=== PATIENT | female | born 1980 | race Caucasian/White ===

== ENCOUNTER → 2017-06-28 | Outpatient (CLI) | payer OTHER ==
[~2017-06-28] MED LIST: ACET325 PO; BIRTH CONTROL; BUSP10 PO; Buspirone HCl7.5 MG; ESCI20 PO; ESTR.1TPB TOP; ESTR2 PO; FLUC150A PO; FLUO10; HYDACE5 PO; IBUP800; Imitrex100 MG PO; KETO10 PO; LORA1 PO; PRED20 PO; PROM25 PO; Percocet 5-3251 EACH PO; QUET100 PO; SUMA25 PO; Seroquel50 MG; Seroquel50 MG PO; TERC.8TC PV; TOPI100 PO; TOPI25 PO; TRAM50; TRAM50 PO; VENL150ER PO; VENL75ER PO; Zofran Odt8 MG SL
[2017-06-28 14:28] LABS: BASOPHILS ABSOLUTE AUTO 0.04 K/mm3 (0.00-0.23); BASOPHILS PERCENT AUTO 1 % (0-2); EOSINOPHILS ABSOLUTE AUTO 0.05 K/mm3 (0.00-0.68); EOSINOPHILS PERCENT AUTO 1 % (0-6); Hematocrit 38.7 % (33.0-51.0); Hemoglobin 13.6 g/dL (11.5-16.0); IMMATURE GRAN ABSOLUTE AUTO 0.01 K/mm3 (0.00-0.10); IMMATURE GRAN PERCENT AUTO 0 % (0-1); LYMPHOCYTES ABSOLUTE AUTO 1.96 K/mm3 (0.84-5.20); LYMPHOCYTES PERCENT AUTO 39 % (21-46); MONOCYTES PERCENT AUTO 8 % (4-13); Mean Corpuscular HGB 32.2 pg (26.0-34.0); Mean Corpuscular HGB Conc 35.1 g/dL (31.5-36.5); Mean Corpuscular Volume 92 fL (80-100); Mean Platelet Volume 11.5 fL (9.1-12.4); NEUTROPHILS ABSOLUTE AUTO 2.59 K/mm3 (1.96-9.15); NEUTROPHILS PERCENT AUTO 51 % (41-73); Platelet Count 271 K/mm3 (150-400); RDW Standard Deviation 40.4 fL (35.1-46.3); Red Blood Cell Count 4.22 M/mm3 (3.80-5.20); White Blood Cell Count 5.05 K/mm3 (4.00-11.30)
[2017-06-28 14:49] LABS: Alanine Aminotransfer (ALT/SGP 20 U/L (12-78); Albumin, Blood 4.4 g/dL (3.4-5.0); Albumin/Globulin Ratio 1.2 (0.8-1.8); Alk Phos 91 U/L (50-136); Anion Gap 10 mmol/L (6-16); Aspartate Aminotrans (AST/SGOT 17 U/L (12-37); Bilirubin, Total 0.6 mg/dL (0.1-1.0); Blood Urea Nitrogen 9 mg/dL (8-24); Bun/Creatinine Ratio 10.8 (12.0-20.0); CO2, Blood 22 mmol/L (21-32); Calcium, Blood 9.5 mg/dL (8.5-10.1); Chloride, Blood 111 mmol/L (98-108); Creatinine, Blood 0.84 mg/dL (0.40-1.00); Globulin, Blood 3.6 g/dL (2.2-4.0); Glomerular Filtration Rate >60 (60-); Glucose, Blood 92 mg/dL (70-99); Potassium, Blood 3.2 mmol/L (3.5-5.5); Sodium, Blood 143 mmol/L (136-145)
== END ==
LOC: LAB SHORT 13:45 → LAB 13:45
PROVIDERS: Nurse Practitioner
DX: R42 Dizziness and giddiness (principal); R06.02 Shortness of breath
CPT/HCPCS: 80053; 85025; 85379

== ENCOUNTER → 2017-07-26 | Outpatient (CLI) | payer OTHER ==
[2017-07-26 12:25] LABS: BASOPHILS ABSOLUTE AUTO 0.03 K/mm3 (0.00-0.23); BASOPHILS PERCENT AUTO 1 % (0-2); EOSINOPHILS ABSOLUTE AUTO 0.07 K/mm3 (0.00-0.68); EOSINOPHILS PERCENT AUTO 1 % (0-6); Hematocrit 40.9 % (33.0-51.0); Hemoglobin 13.7 g/dL (11.5-16.0); IMMATURE GRAN ABSOLUTE AUTO 0.01 K/mm3 (0.00-0.10); IMMATURE GRAN PERCENT AUTO 0 % (0-1); LYMPHOCYTES ABSOLUTE AUTO 1.74 K/mm3 (0.84-5.20); LYMPHOCYTES PERCENT AUTO 34 % (21-46); MONOCYTES ABSOLUTE AUTO 0.37 K/mm3 (0.16-1.47); MONOCYTES PERCENT AUTO 7 % (4-13); Mean Corpuscular HGB 32.4 pg (26.0-34.0); Mean Corpuscular HGB Conc 33.5 g/dL (31.5-36.5); Mean Corpuscular Volume 97 fL (80-100); NEUTROPHILS ABSOLUTE AUTO 2.94 K/mm3 (1.96-9.15); NEUTROPHILS PERCENT AUTO 57 % (41-73); Platelet Count 253 K/mm3 (150-400); RDW Coefficient Variation 12.1 % (11.7-14.2); RDW Standard Deviation 42.9 fL (35.1-46.3); Red Blood Cell Count 4.23 M/mm3 (3.80-5.20); White Blood Cell Count 5.16 K/mm3 (4.00-11.30)
[2017-07-26 12:47] LABS: Alanine Aminotransfer (ALT/SGP 16 U/L (12-78); Albumin, Blood 4.1 g/dL (3.4-5.0); Albumin/Globulin Ratio 1.2 (0.8-1.8); Alk Phos 115 U/L (50-136); Anion Gap 8 mmol/L (6-16); Aspartate Aminotrans (AST/SGOT 13 U/L (12-37); Bilirubin, Total 0.3 mg/dL (0.1-1.0); Blood Urea Nitrogen 12 mg/dL (8-24); Bun/Creatinine Ratio 14.6 (12.0-20.0); CO2, Blood 26 mmol/L (21-32); Calcium, Blood 8.8 mg/dL (8.5-10.1); Chloride, Blood 109 mmol/L (98-108); Creatinine, Blood 0.82 mg/dL (0.40-1.00); Globulin, Blood 3.3 g/dL (2.2-4.0); Glomerular Filtration Rate >60 (60-); Glucose, Blood 96 mg/dL (70-99); Potassium, Blood 3.5 mmol/L (3.5-5.5); Sodium, Blood 143 mmol/L (136-145); Total Protein, Blood 7.4 g/dL (6.4-8.2)
== END | disposition home or self-care (01) ==
LOC: LAB SHORT 12:07 → LAB 12:07
PROVIDERS: Emergency Medicine
DX: R10.84 Generalized abdominal pain (principal)
CPT/HCPCS: 80053; 85025; 87086

== ENCOUNTER → 2018-09-21 | Outpatient (CLI) | payer OTHER ==
[~2018-09-21] MED LIST changes: +ALBU90OI INH; +Adipex-P37.5 M1 PO; +Amoxicillin500 MG PO; +Flonase 0.05% N16 GM; +HYDR1TAB94 PO; +MONT10T PO; +Norco 10-325 T1 EACH PO; +Protonix40 MG PO
[2018-09-23 15:07] LABS: HPV 16 Negative (Negative); HPV 18 Negative (Negative); HPV OTHER HR TYPES Negative (Negative)
== END | disposition home or self-care (01) ==
LOC: LAB SHORT 18:57 → LAB 18:57
PROVIDERS: Nurse Practitioner Women's Health
DX: Z12.72 Encounter for screening for malignant neoplasm of vagina (principal); Z91.89 Other specified personal risk factors, not elsewhere classified
CPT/HCPCS: 87624; G0123

== ENCOUNTER 2018-12-15 14:58 | Emergency (ER) | payer OTHER ==
[~2018-12-15] VITALS: Ht 165.1 cm; Wt 67.1 kg
[~2018-12-15 14:58] MED LIST changes: -ALBU90OI INH
[2018-12-15 16:09] LABS: BASOPHILS ABSOLUTE AUTO 0.06 K/mm3 (0.00-0.23); BASOPHILS PERCENT AUTO 1 % (0-2); EOSINOPHILS ABSOLUTE AUTO 0.21 K/mm3 (0.00-0.68); EOSINOPHILS PERCENT AUTO 2 % (0-6); Hematocrit 45.5 % (33.0-51.0); Hemoglobin 14.7 g/dL (11.5-16.0); IMMATURE GRAN ABSOLUTE AUTO 0.01 K/mm3 (0.00-0.10); IMMATURE GRAN PERCENT AUTO 0 % (0-1); LYMPHOCYTES ABSOLUTE AUTO 2.08 K/mm3 (0.84-5.20); LYMPHOCYTES PERCENT AUTO 22 % (21-46); MONOCYTES ABSOLUTE AUTO 0.63 K/mm3 (0.16-1.47); MONOCYTES PERCENT AUTO 7 % (4-13); Mean Corpuscular HGB 32.3 pg (26.0-34.0); Mean Corpuscular HGB Conc 32.3 g/dL (31.5-36.5); Mean Corpuscular Volume 100 fL (80-100); Mean Platelet Volume 11.4 fL (9.1-12.4); NEUTROPHILS ABSOLUTE AUTO 6.44 K/mm3 (1.96-9.15); NEUTROPHILS PERCENT AUTO 68 % (41-73); Platelet Count 237 K/mm3 (150-400); RDW Coefficient Variation 11.6 % (11.7-14.2); RDW Standard Deviation 42.5 fL (35.1-46.3); Red Blood Cell Count 4.55 M/mm3 (3.80-5.20); White Blood Cell Count 9.43 K/mm3 (4.00-11.30)
[2018-12-15 16:36] LABS: Alanine Aminotransfer (ALT/SGP 27 U/L (12-78); Albumin, Blood 4.7 g/dL (3.4-5.0); Albumin/Globulin Ratio 1.4 (0.8-1.8); Alk Phos 110 U/L (50-136); Anion Gap 5 mmol/L (6-16); Aspartate Aminotrans (AST/SGOT 15 U/L (12-37); Bilirubin, Total 0.4 mg/dL (0.1-1.0); Blood Urea Nitrogen 8 mg/dL (8-24); Bun/Creatinine Ratio 9.9 (12.0-20.0); CO2, Blood 26 mmol/L (21-32); Calcium, Blood 9.3 mg/dL (8.5-10.1); Chloride, Blood 107 mmol/L (98-108); Creatinine, Blood 0.81 mg/dL (0.40-1.00); Globulin, Blood 3.4 g/dL (2.2-4.0); Glomerular Filtration Rate >60 (60-); Glucose, Blood 86 mg/dL (70-99); Potassium, Blood 3.7 mmol/L (3.5-5.5); Sodium, Blood 138 mmol/L (136-145); Total Protein, Blood 8.1 g/dL (6.4-8.2)
[2018-12-15 16:42] LABS: Troponin I <0.015 ng/mL (0.000-0.040)
[2018-12-15 17:17] LABS: Source, Urine Clean Catch
[2018-12-15 18:05] LABS: Appearance, Urine Clear (Clear); Bilirubin, Urine Neg (Neg); Blood, Urine 1+ (Neg); Color, Urine Yellow (P-Yellow); Glucose Qualitative, Urine Neg (Neg); Ketones, Urine Neg (Neg); Leukocyte Esterase, Urine 1+ (Neg); Nitrite, Urine Neg (Neg); Protein, Urine Neg (Neg); Specific Gravity, Urine 1.015 (1.003-1.022); Urobilinogen, Urine NORM (Normal)
[2018-12-15 18:31] LABS: Bacteria Few /hpf; Red Blood Cells, Urine 0-2 /hpf (0-2); Squamous Epithelial Cells Few /hpf (Few)
[2018-12-15] MEDS ORDERED: ALBU90OI INH (18:34)
== END 2018-12-15 18:39 | disposition home or self-care (01) ==
LOC: ER 14:58
PROVIDERS: Physician Assistant
DX: B34.9 Viral infection, unspecified (principal); Z91.012 Allergy to eggs; Z88.2 Allergy status to sulfonamides; Z88.5 Allergy status to narcotic agent; F17.200 Nicotine dependence, unspecified, uncomplicated
CPT/HCPCS: 36415; 71046; 80053; 81001; 84443; 84484; 85025; 87086; 93005; 93010; 99284-25

== ENCOUNTER 2019-02-08 21:18 | Inpatient (IN) | payer OTHER ==
[~2019-02-08] VITALS: Ht 170.2 cm; Wt 69.3 kg
[~2019-02-08 21:18] MED LIST changes: +ALBU90OI INH
[2019-02-08 21:36] LABS: BASOPHILS ABSOLUTE AUTO 0.07 K/mm3 (0.00-0.23); BASOPHILS PERCENT AUTO 1 % (0-2); EOSINOPHILS ABSOLUTE AUTO 0.11 K/mm3 (0.00-0.68); EOSINOPHILS PERCENT AUTO 1 % (0-6); Hematocrit 40.8 % (33.0-51.0); Hemoglobin 13.6 g/dL (11.5-16.0); IMMATURE GRAN ABSOLUTE AUTO 0.02 K/mm3 (0.00-0.10); IMMATURE GRAN PERCENT AUTO 0 % (0-1); LYMPHOCYTES ABSOLUTE AUTO 3.18 K/mm3 (0.84-5.20); LYMPHOCYTES PERCENT AUTO 37 % (21-46); MONOCYTES ABSOLUTE AUTO 0.59 K/mm3 (0.16-1.47); MONOCYTES PERCENT AUTO 7 % (4-13); Mean Corpuscular HGB 32.8 pg (26.0-34.0); Mean Corpuscular HGB Conc 33.3 g/dL (31.5-36.5); Mean Corpuscular Volume 98 fL (80-100); Mean Platelet Volume 10.3 fL (9.1-12.4); NEUTROPHILS ABSOLUTE AUTO 4.61 K/mm3 (1.96-9.15); NEUTROPHILS PERCENT AUTO 54 % (41-73); Platelet Count 272 K/mm3 (150-400); RDW Coefficient Variation 11.9 % (11.7-14.2); Red Blood Cell Count 4.15 M/mm3 (3.80-5.20); White Blood Cell Count 8.58 K/mm3 (4.00-11.30)
[2019-02-08 21:53] LABS: Acetaminophen, Random <2.0 ug/mL (10.0-30.0); Alanine Aminotransfer (ALT/SGP 28 U/L (12-78); Albumin, Blood 4.5 g/dL (3.4-5.0); Albumin/Globulin Ratio 1.3 (0.8-1.8); Alk Phos 84 U/L (50-136); Anion Gap 8 mmol/L (6-16); Aspartate Aminotrans (AST/SGOT 19 U/L (12-37); Bilirubin, Total 0.3 mg/dL (0.1-1.0); Blood Urea Nitrogen 10 mg/dL (8-24); Bun/Creatinine Ratio 12.9 (12.0-20.0); CO2, Blood 26 mmol/L (21-32); Chloride, Blood 109 mmol/L (98-108); Creatinine, Blood 0.78 mg/dL (0.40-1.00); Ethanol (Alcohol), Blood, Med 169 mg/dL; Globulin, Blood 3.4 g/dL (2.2-4.0); Glomerular Filtration Rate >60 (60-); Glucose, Blood 88 mg/dL (70-99); Potassium, Blood 3.7 mmol/L (3.5-5.5); Salicylate 3.7 mg/dL (2.8-20.0); Sodium, Blood 143 mmol/L (136-145); Total Protein, Blood 7.9 g/dL (6.4-8.2)
[2019-02-08 23:24] LABS: U Amphetamine Screen Not Detected; U Barbituate Screen Not Detected; U Benzodiazapine Screen DETECTED; U Buprenorphine Screen Not Detected; U Cannabinoids Screen Not Detected; U Cocaine Screen Not Detected; U Methadone Screen Not Detected; U Methamphetamine Screen Not Detected; U Opiates Screen Not Detected; U Oxycodone Screen Not Detected; U Phencyclidine Screen Not Detected; U Propoxyphene Screen Not Detected
[2019-02-08 23:47] LABS: CPK Creatine Kinase 132 U/L (26-193)
[2019-02-09] MEDS ORDERED: Citalopram HBr20 MG PO (00:17)
[2019-02-09] MEDS ORDERED: DOTTI1 EACH (00:18)
[2019-02-09] MEDS ORDERED: PROG100 PO (00:18)
[2019-02-09] MEDS ORDERED: ALPRAZOLAM0.5 M1 PO (00:19)
[2019-02-09] MEDS ORDERED: Sudogest30 MG PO (00:21)
--- NOTE | 2019-02-09 01:21 | NUR ---
ASSUMED PT CARE AT 2330 PT ALERT AND ORIENTED AND RESPONDING APPROPRIATELY TO QUESTIONS. PT VERY TEARFUL AND EMOTIONAL UPON ARRIVAL. CONTINUED TO ASK IF SHE WAS IN TROUBLE. REASSURED THAT SHE WASN'T IN TROUBLE, BUT SHE WAS BEING HELD ON A 2MD HOLD DUE TO HER ATTEMPTING TO HARM HERSELF. PT STATES SHE DID IT DUE TO HER EX- TRYING TO GET FULL CUSTODY OF HER KIDS. STATES SHE FEELS WORTHLESS AND A CONSTANT FAILURE. PT REASSURED WITH TOUCH OF HAND. ASKED IF SHE HAS REACHED OUT FOR ASSISTANCE IN THE PAST FOR SIMILAR FEELINGS. PT STATED SHE HAD NOT AND THAT SHE DOESN'T HAVE THE TIME TO SEE ANYBODY FOR HER DEPRESSION DUE TO HER WORKING [employer] AND HAVING FOUR KIDS. REASSURED PT THAT WE WOULD HELP ASSIST WITH A SAFETY PLAN TO PREVENT FUTURE RECURRENCE. PT STATES SHE DIDN'T TAKE ALL HER XANAX TONIGHT. SHE CONFIRMED IT WAS REFILLED ON THE , BUT TOOK THEM FREQUENTLY T/O THE WEEKEND. STATED THE LAST THING SHE REMEMBERED DOING WAS GETTING UP TO USE THE BATHROOM AT HOME AND HAS NO RECOLLECTION SINCE THEN. STATES SHE IS NOT CURRENTLY HAVING ANY THOUGHTS OF KILLING HERSELF. CIVIL RIGHTS WAS READ AND SIGNED. PT CONTINUES TO BE TEARFUL; AGAIN, REASSURED THAT SHE WAS NOT IN TROUBLE AND THAT HER PRIVACY WOULD STILL BE MAINTAINED. PT STATED HE EX- IS A TRANSLITERATOR AND WOULD FIND A WAY TO FIND OUT SHE WAS HERE. PT C/O 10/16 MIGRAINE PAIN; STATING SHE HAD PRESSURE BEHIND HER EYES AND TO HER NECK. ADMINISTERED TORADOL WITH NO EFFECT; ICE PACK APPLIED TO BASE OF NECK. NO RELIEF; THEREFORE, DR. ROCHA CALLED AND ORDERS OBTAINED FOR FIORICET. PT IS CURRENTLY RESTING WITH LIGHTS ON DIM; ONE ON ONE SITTER IN PLACE; CALL LIGHT LEFT WITHIN REACH. PT ABLE TO MAKE NEEDS KNOWN. SHAHEED LEFT THE NIGHT AND WAS VERY COOPERATIVE AND UNDERSTANDING OF NOT BEING ABLE TO STAY THE NIGHT D/T PT BEING HIGH SUICIDE RISK. WILL CONTINUE TO MONITOR.
--- NOTE | 2019-02-09 05:00 | NUR ---
POISON CONTROL CALLED REGARDING PATIENT'S STATUS. RECOMMENDED ANOTHER BLOOD DRAW FOR ASPIRIN LEVELS. DR ROCHA CONTACTED AND ORDER GIVEN FOR THE LAB. JOHN PAUL GREEN
--- NOTE | 2019-02-09 05:33 | NUR ---
END OF SHIFT SUMMARY NO SIGNIFICANT CHANGES SINCE LAST ENTRY. PT SLEEPING MOST OF SHIFT. C/O HEADACHE OFF AND ON; FIORICET APPEARS EFFECTIVE FOR PT. WILL CONTINUE TO MONITOR UNTIL REPORT IS HANDED OFF TO ONCOMING RN.
--- NOTE | 2019-02-09 07:25 | NUR ---
RECEIVED ORDERS FROM DR. ROCHA TO DRAW ASPIRIN LEVEL DUE TO POISON CONTROL RECOMMENDATION.
--- NOTE | 2019-02-09 07:45 | NUR ---
ASSUMED CARE RECEIVED REPORT FROM GILBERTO CANTU. PT IS LYING IN BED, ALERT, ORIENTED X 4. IS AT BEDSIDE. PT AND 'S BELONGINGS ARE OUTSIDE THE ROOM. THERE IS A SITTER WATCHING THE PATIENT. SHE IS CURRENTLY DENYING SUICIDAL IDEATION. BED IS LOW AND LOCKED. SHE HAS A PATENT BEE DRAINING URINE.
--- NOTE | 2019-02-09 08:21 | NUR ---
DR. KO IN ROOM WITH PATIENT RIGHT NOW.
--- NOTE | 2019-02-09 12:15 | NUR ---
UPDATE DISCUSSED WITH POISON CONTROL, AND UPDATED THEM ON SITUATION. THEY ARE SIGNING OFF. SHE IS TRANSFERING TO PCU, ONCE THE ROOM IS FREE AND CLEAN. WAITING TO GIVE REPORT TO PCU NURSE. SHE IS MEDICALLY STABLE, HER LOW BLOOD PRESSURES ARE DUE TO POSITIONING OF HER BP CUFF. HER MIGRAINE HAS SUBSIDED FOR THE TIME BEING. THE FIORICET SEEMS TO WORK WELL, WHILE THE TORADOL SEEMS TO HAVE NO EFFECT. HER ABDOMINAL PAIN IS RELIEVED BY REPOSITIONING TO HER LEFT SIDE. MINNIE HAS YET TO COME BY AND SEE HER. SOCRATES HAS SEEN HER.
--- NOTE | 2019-02-09 13:58 | NUR ---
Attempted to meet at 10 am this morning for Safety Plannin. patient did not want to talk at that time. Apns Rafael met with patient later in day and completed the plan. Brina Kuhn M.Ed., [facility]
--- NOTE | 2019-02-09 14:03 | NUR ---
PT LEFT ICU FOR PCU 3 AT 1400. SHE WAS ON ROOM AIR, WITH STABLE VITALS IN SINUS RHYTHM. TWO CTO'S TOOK PT TO HER ROOM. ONLY COMPLAINT WAS OF HER MIGRAINE.
--- NOTE | 2019-02-09 14:20 | NUR ---
PT TRANSFER TO UNIT. PT WAS TRANSFERRED VIA W/C TO THIS UNIT. PT'S VS STABLE, PT IS ON HIGH RISK SI FOR XANAX OD. PT WAS AGITATED ABOUT HAVING THE 1:1 SITTER AND OTHER SI PRECAUTIONS. FACILITY POLILCY WAS EXPLAINED TO THE PT AND FAMILY AT THE BEDSIDE. WILL CONTINUE TO MONITOR.
[2019-02-09] MEDS ORDERED: TRAZ50 PO (16:53)
--- NOTE | 2019-02-09 17:21 | NUR ---
PT D/C. PT WAS D/C'D HOME AFTER MEETING WITH MENTAL HEALTH PROVIDER. PT EDUCATED ON NEW MEDICATION AND D/C INSTRUCTIONS. IV WAS REMOVED WNL. PT'S BELONGINGS PACKED AND D/C'D WITH PT. PT DENIES CHEST PAIN/PRESSURE N/V OR SOB.
== END 2019-02-09 17:20 | disposition home or self-care (01) | DRG 917 ==
LOC: ER 21:18 → ICUE 22:27 → PCU 22:27 → ICUW 22:27 → ICUE 23:29 → PCU 02-09 14:00
PROVIDERS: Physician Assistant; ADMIT Family Medicine
DX: T42.4X2A Poisoning by benzodiazepines, intentional self-harm, initial encounter (principal); G92 Toxic encephalopathy; R45.851 Suicidal ideations; F33.9 Major depressive disorder, recurrent, unspecified; F17.210 Nicotine dependence, cigarettes, uncomplicated; Z88.5 Allergy status to narcotic agent; Z88.2 Allergy status to sulfonamides; Z91.012 Allergy to eggs
CPT/HCPCS: 36415; 51702; 70450; 72125; 80053; 81025; 82550; 85025; 93005; 93010; 96361-59; 96374-59; 96375-59; 99285-25; G0480; J1885; J2310; J2405; J3411; J3475; J7030; J7042

== ENCOUNTER 2019-11-15 12:22 | Emergency (ER) | payer OTHER ==
[~2019-11-15] VITALS: Ht 165.1 cm; Wt 65.8 kg
[~2019-11-15 12:22] MED LIST changes: +ALPRAZOLAM0.5 M1 PO; +Citalopram HBr20 MG PO; +DOTTI1 EACH; +PROG100 PO; +Sudogest30 MG PO; +TRAZ50 PO
[2019-11-15 13:45] LABS: BASOPHILS ABSOLUTE AUTO 0.07 K/mm3 (0.00-0.23); BASOPHILS PERCENT AUTO 1 % (0-2); EOSINOPHILS ABSOLUTE AUTO 0.13 K/mm3 (0.00-0.68); EOSINOPHILS PERCENT AUTO 2 % (0-6); Hematocrit 45.8 % (33.0-51.0); Hemoglobin 15.2 g/dL (11.5-16.0); IMMATURE GRAN ABSOLUTE AUTO 0.01 K/mm3 (0.00-0.10); IMMATURE GRAN PERCENT AUTO 0 % (0-1); LYMPHOCYTES ABSOLUTE AUTO 2.46 K/mm3 (0.84-5.20); LYMPHOCYTES PERCENT AUTO 38 % (21-46); MONOCYTES ABSOLUTE AUTO 0.36 K/mm3 (0.16-1.47); MONOCYTES PERCENT AUTO 6 % (4-13); Mean Corpuscular HGB 31.8 pg (26.0-34.0); Mean Corpuscular HGB Conc 33.2 g/dL (31.5-36.5); Mean Corpuscular Volume 96 fL (80-100); Mean Platelet Volume 11.1 fL (9.1-12.4); NEUTROPHILS ABSOLUTE AUTO 3.47 K/mm3 (1.96-9.15); NEUTROPHILS PERCENT AUTO 53 % (41-73); Platelet Count 296 K/mm3 (150-400); RDW Coefficient Variation 11.3 % (11.7-14.2); RDW Standard Deviation 40.1 fL (35.1-46.3); Red Blood Cell Count 4.78 M/mm3 (3.80-5.20)
[2019-11-15 14:01] LABS: Alanine Aminotransfer (ALT/SGP 29 U/L (12-78); Albumin, Blood 4.3 g/dL (3.4-5.0); Alk Phos 121 U/L (50-136); Anion Gap 4 mmol/L (6-16); Aspartate Aminotrans (AST/SGOT 13 U/L (12-37); Bilirubin, Total 0.3 mg/dL (0.1-1.0); Blood Urea Nitrogen 7 mg/dL (8-24); Bun/Creatinine Ratio 8.3 (12.0-20.0); CO2, Blood 28 mmol/L (21-32); Calcium, Blood 9.5 mg/dL (8.5-10.1); Chloride, Blood 110 mmol/L (98-108); Creatinine, Blood 0.85 mg/dL (0.40-1.00); Globulin, Blood 4.1 g/dL (2.2-4.0); Glomerular Filtration Rate >60 (60-); Glucose, Blood 93 mg/dL (70-99); Potassium, Blood 3.6 mmol/L (3.5-5.5); Sodium, Blood 142 mmol/L (136-145); Total Protein, Blood 8.4 g/dL (6.4-8.2); Troponin I <0.015 ng/mL (0.000-0.040)
[2019-11-15] MEDS ORDERED: ESZO1 PO (16:55)
[2019-11-15] MEDS ORDERED: AMOCLA875 PO (16:55)
[2019-11-15] MEDS ORDERED: BENZ100A PO (16:56)
== END 2019-11-15 18:48 | disposition left against medical advice (07) ==
LOC: ER 12:22
PROVIDERS: Physician Assistant
DX: R06.02 Shortness of breath (principal); R07.89 Other chest pain; R07.0 Pain in throat; F41.9 Anxiety disorder, unspecified; F17.200 Nicotine dependence, unspecified, uncomplicated; Z88.2 Allergy status to sulfonamides; Z88.5 Allergy status to narcotic agent; Z91.012 Allergy to eggs; Z79.899 Other long term (current) drug therapy
CPT/HCPCS: 36415; 71045; 80053; 84443; 84484; 85025; 85379; 93005; 93010; 99284-25

== ENCOUNTER 2019-11-16 01:06 | Emergency (ER) | payer OTHER ==
[~2019-11-16] VITALS: Ht 165.1 cm; Wt 65.8 kg
[~2019-11-16 01:06] MED LIST changes: +AMOCLA875 PO; +BENZ100A PO; +ESZO1 PO
== END 2019-11-16 05:25 | disposition home or self-care (01) ==
LOC: ER 01:06
DX: J40 Bronchitis, not specified as acute or chronic (principal); F17.210 Nicotine dependence, cigarettes, uncomplicated; Z88.2 Allergy status to sulfonamides; Z88.5 Allergy status to narcotic agent; Z91.012 Allergy to eggs; Z79.899 Other long term (current) drug therapy
CPT/HCPCS: 36415; 71260; 99283-25; Q9967

== ENCOUNTER 2020-03-28 04:42 | Emergency (ER) | payer OTHER ==
[~2020-03-28] VITALS: Ht 165.1 cm; Wt 63.5 kg
[2020-03-28] MEDS ORDERED: DEXTROAMPHETAMI10 M3 PO (05:05)
[2020-03-28 05:36] LABS: BASOPHILS ABSOLUTE AUTO 0.07 K/mm3 (0.00-0.23); BASOPHILS PERCENT AUTO 1 % (0-2); EOSINOPHILS ABSOLUTE AUTO 0.09 K/mm3 (0.00-0.68); EOSINOPHILS PERCENT AUTO 2 % (0-6); Hematocrit 42.5 % (33.0-51.0); Hemoglobin 14.2 g/dL (11.5-16.0); IMMATURE GRAN ABSOLUTE AUTO 0.01 K/mm3 (0.00-0.10); IMMATURE GRAN PERCENT AUTO 0 % (0-1); LYMPHOCYTES ABSOLUTE AUTO 2.27 K/mm3 (0.84-5.20); LYMPHOCYTES PERCENT AUTO 45 % (21-46); MONOCYTES ABSOLUTE AUTO 0.42 K/mm3 (0.16-1.47); MONOCYTES PERCENT AUTO 8 % (4-13); Mean Corpuscular HGB 31.3 pg (26.0-34.0); Mean Corpuscular HGB Conc 33.4 g/dL (31.5-36.5); Mean Corpuscular Volume 94 fL (80-100); Mean Platelet Volume 10.6 fL (9.1-12.4); NEUTROPHILS ABSOLUTE AUTO 2.23 K/mm3 (1.96-9.15); NEUTROPHILS PERCENT AUTO 44 % (41-73); Platelet Count 279 K/mm3 (150-400); RDW Coefficient Variation 11.8 % (11.7-14.2); RDW Standard Deviation 40.7 fL (35.1-46.3); Red Blood Cell Count 4.54 M/mm3 (3.80-5.20); White Blood Cell Count 5.09 K/mm3 (4.00-11.30)
[2020-03-28 05:53] LABS: Alanine Aminotransfer (ALT/SGP 28 U/L (12-78); Albumin, Blood 4.3 g/dL (3.4-5.0); Albumin/Globulin Ratio 1.3 (0.8-1.8); Alk Phos 100 U/L (50-136); Anion Gap 7 mmol/L (6-16); Aspartate Aminotrans (AST/SGOT 19 U/L (12-37); Bilirubin, Total 0.6 mg/dL (0.1-1.0); Blood Urea Nitrogen 10 mg/dL (8-24); CO2, Blood 27 mmol/L (21-32); Calcium, Blood 9.2 mg/dL (8.5-10.1); Chloride, Blood 108 mmol/L (98-108); Creatinine, Blood 0.83 mg/dL (0.40-1.00); Ethanol (Alcohol), Blood, Med <3 mg/dL; Globulin, Blood 3.4 g/dL (2.2-4.0); Glomerular Filtration Rate >60 (60-); Glucose, Blood 83 mg/dL (70-99); Potassium, Blood 3.9 mmol/L (3.5-5.5); Sodium, Blood 142 mmol/L (136-145); Total Protein, Blood 7.7 g/dL (6.4-8.2)
[2020-03-28 06:11] LABS: Source, Urine Clean Catch
[2020-03-28 06:21] LABS: Appearance, Urine Hazy (Clear); Bilirubin, Urine Neg (Neg); Blood, Urine 4+ (Neg); Color, Urine Amber (P-Yellow); Glucose Qualitative, Urine Neg (Neg); Ketones, Urine 1+ (Neg); Leukocyte Esterase, Urine 3+ (Neg); Nitrite, Urine Neg (Neg); Protein, Urine 2+ (Neg); Specific Gravity, Urine 1.025 (1.003-1.022); Urobilinogen, Urine NORM (Normal)
[2020-03-28 06:27] LABS: Amorphous Light (0-Heavy); Bacteria Many /hpf; Mucus Mod (0-Heavy); Squamous Epithelial Cells Few /hpf (Few)
[2020-03-28] MEDS ORDERED: CEPH500 PO (07:17)
== END 2020-03-28 07:31 | disposition home or self-care (01) ==
LOC: ER 04:42
PROVIDERS: Emergency Medicine
DX: N39.0 Urinary tract infection, site not specified (principal); Z79.899 Other long term (current) drug therapy
CPT/HCPCS: 36415; 76705; 80053; 81001; 83690; 85025; 87086; 96374; 96375; 99284-25; C9113; G0480; J2405; J3010; J7030

== ENCOUNTER 2020-09-28 23:37 | Emergency (ER) | payer OTHER ==
[~2020-09-28] VITALS: Ht 162.6 cm; Wt 63.5 kg
[~2020-09-28 23:37] MED LIST changes: +CEPH500 PO; +DEXTROAMPHETAMI10 M3 PO
== END 2020-09-29 03:14 | disposition left against medical advice (07) ==
LOC: ER 23:37
DX: R10.32 Left lower quadrant pain (principal); Z53.21 Procedure and treatment not carried out due to patient leaving prior to being seen by health care provider
CPT/HCPCS: 76857; 99283

== ENCOUNTER 2020-10-19 05:56 | Day surgery (SDC) | payer OTHER ==
[~2020-10-19] VITALS: Ht 162.6 cm; Wt 62.2 kg
[~2020-10-19 05:56] MED LIST changes: +ALPR1 PO; +ZYRTEC10 M2 PO
--- NOTE | 2020-10-19 06:51 | NUR ---
History, Chart, Medications and Allergies reviewed before start of procedure. Lungs clear T/O to Auscultation. Patient confirms NPO status and agrees with scheduled surgery. Pre-Op teaching done. Pt verbalizes understanding. Patient States Post-Procedure ride home has been arranged. Patient reports completing Chlorhexadine shower X2 prior to admission to hospital.
--- NOTE | 2020-10-19 08:55 | NUR ---
10/19/20 0855 Rosa Elena Koo TAP BLOCK COMPLETED AT 0750
--- NOTE | 2020-10-19 12:05 | NUR ---
DR. LÓPEZ AT BEDSIDE APPROX 1155 TO SPEAK WITH PT/RN ABOUT RIGHT EYE DISCOMFORT. INSTRUCTED PT TO KEEP COLD/HOT COMPRESSES OVER EYE, KEEP EYE CLOSED AND USE EYE DROPS TO KEEP MOIST. PT AGREES WITH INSTRUCTIONS AND WILL SEEK EYE CARE IF NOT RELIEVED IN 24 HRS.
--- NOTE | 2020-10-19 12:24 | NUR ---
Patient up to Ambulate independently. Gait steady. Discharge instructions reviewed with patient. Patient verbalizes understanding. Copy given to patient to take home. Discharged via wheelchair to private car for ride home WITH FRIEND.PT GIVEN ICE PACK, REMINDED OF INSTRUCTIONS FROM ANESTHESIA FOR RIGHT EYE, AND PRESCRIPTION FOR PAIN MEDICATION GIVEN TO PT AND PUT IN HER PURSE AT DISCHARGE. DERMABOND REMAINS INTACT WITH NO DRAINAGE AND ABD BINDER REPOSITIONED FOR COMFORT.
== END 2020-10-19 12:23 | disposition home or self-care (01) ==
LOC: ORSCMMR 05:56 → ORD 07:30 → ORSCMMR 12:23
PROVIDERS: Surgery
PROC: 0WUF4JZ Supplement Abdominal Wall with Synthetic Substitute, Percutaneous Endoscopic Approach (ICD-10-PCS; principal; 2020-10-19 07:30)
PROC: 8E0W4CZ Robotic Assisted Procedure of Trunk Region, Percutaneous Endoscopic Approach (ICD-10-PCS; principal; 2020-10-19 07:30)
DX: K43.9 Ventral hernia without obstruction or gangrene (principal); F41.9 Anxiety disorder, unspecified; Z79.899 Other long term (current) drug therapy
CPT/HCPCS: 49652; S2900; A9270; C1781; J0690; J1100; J1885; J2250; J2405; J2704; J3010; J7120

== ENCOUNTER → 2022-03-30 | Outpatient (CLI) | payer OTHER ==
[2022-03-30 10:59] LABS: BASOPHILS ABSOLUTE AUTO 0.04 K/mm3 (0.00-0.23); BASOPHILS PERCENT AUTO 1 % (0-2); EOSINOPHILS ABSOLUTE AUTO 0.01 K/mm3 (0.00-0.68); EOSINOPHILS PERCENT AUTO 0 % (0-6); Hematocrit 42.9 % (33.0-51.0); Hemoglobin 14.7 g/dL (11.5-16.0); IMMATURE GRAN ABSOLUTE AUTO 0.01 K/mm3 (0.00-0.10); IMMATURE GRAN PERCENT AUTO 0 % (0-1); LYMPHOCYTES ABSOLUTE AUTO 0.84 K/mm3 (0.84-5.20); LYMPHOCYTES PERCENT AUTO 13 % (21-46); MONOCYTES ABSOLUTE AUTO 0.49 K/mm3 (0.16-1.47); MONOCYTES PERCENT AUTO 8 % (4-13); Mean Corpuscular HGB 31.9 pg (26.0-34.0); Mean Corpuscular HGB Conc 34.3 g/dL (31.5-36.5); Mean Corpuscular Volume 93 fL (80-100); Mean Platelet Volume 10.6 fL (9.1-12.4); NEUTROPHILS ABSOLUTE AUTO 5.17 K/mm3 (1.96-9.15); NEUTROPHILS PERCENT AUTO 79 % (41-73); Platelet Count 252 K/mm3 (150-400); RDW Coefficient Variation 11.9 % (11.7-14.2); RDW Standard Deviation 41.2 fL (35.1-46.3); Red Blood Cell Count 4.61 M/mm3 (3.80-5.20); White Blood Cell Count 6.56 K/mm3 (4.00-11.30)
[2022-03-30 11:08] LABS: Albumin, Blood 4.6 g/dL (3.4-5.0); Albumin/Globulin Ratio 1.2 (0.8-1.8); Bilirubin, Total 0.2 mg/dL (0.1-1.0); Bun/Creatinine Ratio 6.8 (12.0-20.0); Calcium, Blood 9.2 mg/dL (8.5-10.1); Creatinine, Blood 0.88 mg/dL (0.40-1.00); Globulin, Blood 3.8 g/dL (2.2-4.0); Potassium, Blood 3.7 mmol/L (3.5-5.5); Total Protein, Blood 8.4 g/dL (6.4-8.2)
[2022-03-31 09:38] LABS: Candida species (DNA Probe) Negative (NEGATIVE); G. vaginalis (DNA Probe) Negative (NEGATIVE); T. vaginalis (DNA Probe) Negative (NEGATIVE)
== END | disposition home or self-care (01) ==
LOC: LAB SHORT 10:53 → LAB 10:53
PROVIDERS: Physician Assistant Surgical
DX: N76.0 Acute vaginitis (principal); R10.9 Unspecified abdominal pain
CPT/HCPCS: 80053; 83690; 85025; 87480; 87510; 87660

== ENCOUNTER 2022-10-30 09:45 | Emergency (ER) | payer OTHER ==
[~2022-10-30] VITALS: Ht 162.6 cm; Wt 61.2 kg
[2022-10-30 10:17] VITALS: BP 153/107
[2022-10-30 11:52] LABS: Source, Urine Clean Catch
[2022-10-30 12:00] LABS: Bilirubin, Urine Neg (Neg); Blood, Urine 2+ (Neg); Glucose Qualitative, Urine Neg (Neg); Ketones, Urine Neg (Neg); Leukocyte Esterase, Urine 3+ (Neg); Nitrite, Urine Neg (Neg); Protein, Urine 2+ (Neg); Urobilinogen, Urine NORM (Normal)
[2022-10-30 12:08] LABS: Appearance, Urine Hazy (Clear); Color, Urine Yellow (P-Yellow)
[2022-10-30 12:12] LABS: White Blood Cells, Urine 50-100 /hpf (0-5)
[2022-10-30 12:13] LABS: Bacteria Many /hpf; Squamous Epithelial Cells Mod /hpf (Few)
[2022-10-30 12:14] LABS: Mucus Mod (0-Heavy); Transitional Epithelial Cells Few /hpf (0-Rare)
[2022-10-30] MEDS ORDERED: METR500 PO (13:02)
[2022-10-30] MEDS ORDERED: DOXY100 PO (13:02)
[2022-10-31 22:08] LABS: HBSAG SCREEN Negative (Negative); HCV AB Non Reactive (Non Reactive); HEP B CORE AB, TOT Negative (Negative); HIV AB/P24 AG SCREEN Non Reactive (Non Reactive)
[2022-11-01 02:08] LABS: CHLAMYDIA TRACHOMATIS, NAA Negative (Negative)
== END 2022-10-30 13:29 | disposition home or self-care (01) ==
LOC: ER 09:45
PROVIDERS: Emergency Medicine
DX: T74.21XA Adult sexual abuse, confirmed, initial encounter (principal); F17.210 Nicotine dependence, cigarettes, uncomplicated; Z91.012 Allergy to eggs; Z88.2 Allergy status to sulfonamides; Z88.5 Allergy status to narcotic agent
CPT/HCPCS: 36415; 81001; 86592; 99284; J0696